=== PATIENT | male | born 1980 | race Native Hawaiian/Other Pacific Islander ===

== ENCOUNTER 2018-05-17 15:19 | Inpatient (IN) | payer BC ==
[~2018-05-17] VITALS: Ht 185.4 cm; Wt 106.3 kg
[2018-05-17 22:05] LABS: PLATELET COUNT 214 K/uL (142-355)
[2018-05-17 22:19] LABS: POTASSIUM 3.7 mmol/L (3.6-5.2)
[2018-05-17 23:01] VITALS: BP 130/70; TEMP 98.6; Ht 185.4 cm; Wt 106.3 kg
[2018-05-18] VITALS: BP 121/68; TEMP 99.4
[2018-05-18 04:00] VITALS: BP 119/63; TEMP 99.7
[2018-05-18 08:00] VITALS: BP 126/69; TEMP 99.1
[2018-05-18 09:19] LABS: PLATELET COUNT 212 K/uL (142-355)
[2018-05-18 09:43] LABS: POTASSIUM 4.1 mmol/L (3.6-5.2)
[2018-05-18 16:00] VITALS: BP 133/62; TEMP 98.2
[2018-05-18 20:20] VITALS: BP 133/80; TEMP 99.3
[2018-05-19 00:01] VITALS: BP 113/62; TEMP 99.8
[2018-05-19 04:00] VITALS: BP 113/58; TEMP 99.2
[2018-05-19 04:52] LABS: PLATELET COUNT 182 K/uL (142-355)
[2018-05-19 05:13] LABS: POTASSIUM 4.3 mmol/L (3.6-5.2)
[2018-05-19 08:05] VITALS: BP 109/52; TEMP 98.2
== END 2018-05-19 12:40 | disposition home or self-care (01) | DRG 340 ==
LOC: CT 15:19 → MED/SURG 19:45
PROVIDERS: ADMIT Student in an Organized Health Care Education/Training Program
PROC: 0DTJ4ZZ Resection of Appendix, Percutaneous Endoscopic Approach (ICD-10-PCS; principal; 2018-05-18)
DX: K35.32 Acute appendicitis with perforation, localized peritonitis, and gangrene, without abscess (principal)
CPT/HCPCS: 36415; 80053; 83735; 85027; J0132; J0330; J0690; J1100; J1170; J1885; J2001; J2250; J2405; J2543; J2704; J2710; J3010; J3490